=== PATIENT | male | born 1970 | race African-American/Black ===

== ENCOUNTER 2019-05-15 20:05 | Emergency (ER) | payer OTHER ==
[~2019-05-15] VITALS: Ht 177.8 cm; Wt 88.6 kg
[2019-05-15 20:12] VITALS: Ht 177.8 cm; Wt 88.6 kg
[2019-05-15] MEDS ORDERED: LISINOPRIL (20:13)
[2019-05-15] MEDS ORDERED: TORADOL10 MG PO (23:17)
[2019-05-15] MEDS ORDERED: CYCLOBENZAPRINE10 MG PO (23:17)
[2019-05-15 23:49] VITALS: BP 123/84
== END 2019-05-15 23:50 | disposition home or self-care (01) ==
LOC: D.ER 20:05
DX: S39.012A Strain of muscle, fascia and tendon of lower back, initial encounter (principal); S16.1XXA Strain of muscle, fascia and tendon at neck level, initial encounter; S40.022A Contusion of left upper arm, initial encounter; V89.2XXA Person injured in unspecified motor-vehicle accident, traffic, initial encounter; Y93.9 Activity, unspecified; Y92.9 Unspecified place or not applicable; I10 Essential (primary) hypertension